=== PATIENT | female | born 1980 | race Caucasian/White ===

== ENCOUNTER 2021-10-27 22:39 | Emergency (ER) | payer BC ==
[2021-10-27 23:08] VITALS: BP 143/98; PULSE 79; RESP 19; TEMP 98
--- NOTE | 2021-10-27 23:24 | ED ---
General Adult HPI - General Chief complaint: Recheck/Abnormal Lab/Rx Stated complaint: RT breast biopsy pain Source: patient, RN notes reviewed Mode of arrival: ambulatory - History of Present Illness Initial comments: 41-year-old female presents to the emergency department for evaluation of bleeding from rest biopsy site. Patient states she had a breast biopsy done today at a [facility] in [facility]. States she tolerated the procedure well and has had ice on for 20 minute intervals. States she is concerned because she is having some thin bright red bleeding. Does have steri-strips in place which are intact. Reports minimal discomfort. Denies fever, chills, headache, chest pain, shortness of breath, difficulty breathing, nausea, vomiting, diarrhea, or dysuria. - Related Data Allergies Allergy/AdvReac Type Severity Reaction Status Date / Time No Known Allergies Allergy Verified 10/27/21 23:08 Review of Systems ROS Statement: Those systems with pertinent positive or pertinent negative responses have been documented in the HPI. ROS Other: All systems not noted in ROS Statement are negative. Past Medical History History of Any Multi-Drug Resistant Organisms: None Reported Additional Past Surgical History / Comment(s): breast biopsy 10/27/21 Past Psychological History: No Psychological Hx Reported Smoking Status: Never smoker Past Alcohol Use History: None Reported Past Drug Use History: None Reported General Exam Limitations: no limitations (Developed, well-nourished female in no acute distress. Initial temperature 98.0, pulse 79, respirations 20, blood pressure 143/98, pulse ox 98% on room air.) General appearance: alert, in no apparent distress Respiratory exam: Present: normal lung sounds bilaterally. Absent: respiratory distress, wheezes, rales, rhonchi, stridor Cardiovascular Exam: Present: regular rate, normal rhythm, normal heart sounds. Absent: systolic murmur, diastolic murmur, rubs, gallop, clicks Neurological exam: Present: alert, oriented X3, CN II-XII intact Psychiatric exam: Present: normal affect, normal mood Skin exam: Present: warm, dry, normal color, other (Thin red bleeding from right breast biopsy site; steri-strips in place; dried blood noted on dressing. Breast is soft and nontender upon palpation.) Course Vital Signs 10/27/21 23:03 Temperature 98 F Pulse Rate 79 Respiratory 19 Rate Blood Pressure 143/98 O2 Sat by Pulse 98 Oximetry - Reevaluation(s) Reevaluation #1: 10/27/21 23:15 Gauze dressing applied over steri-strips and ice applied. Patient tolerated well. Reassured of normal findings and will be discharged home to follow up as scheduled. Medical Decision Making - Medical Decision Making 41-year-old female with no significant past medical history presents to the emergency department for evaluation of bleeding from right breast biopsy site today. Upon exam, patient is well-appearing and in no acute distress. She is able to move freely and denies discomfort. Vital signs are stable. Patient is afebrile. Right breast is soft and nontender upon gentle palpation. Steri- Strips remain intact. There is small amount of thin, bright red bleeding noted from biopsy site as would be expected. Gauze dressing was applied and ice was secured over the site. Patient is instructed to continue care of the incision as directed in her discharge paperwork. She is encouraged to continue ice carlo lication for 20 minutes out of every hour. Return parameters were discussed in detail. Patient verbalizes understanding and agrees with this plan. Attending: Bernie. Disposition Clinical Impression: Post-op bleeding Disposition: HOME SELF-CARE Instructions (If sedation given, give patient instructions): Postoperative Bleeding (ED) Additional Instructions: Continue to apply ice for no more than 20 minutes per hour. Apply clean gauze if dressing is saturated. Follow up as you were instructed. Return to the emergency department with any new, worsening, or concerning symptoms. Is patient prescribed a controlled substance at d/c from ED?: No Referrals: Nonstaff,Physician [Primary Care Provider] - 1-2 days Time of Disposition: 23:24
== END 2021-10-27 23:30 | disposition home or self-care (01) ==
LOC: EC 22:39
DX: L76.22 Postprocedural hemorrhage of skin and subcutaneous tissue following other procedure (principal)
CPT/HCPCS: 99283